=== PATIENT | female | born 1985 | race Caucasian/White ===

== ENCOUNTER → 2016-07-28 | Outpatient (REF) | payer BC ==
[2016-07-28 12:59] LABS: PROLACTIN 9.4 NG/ML
== END ==
LOC: M LABDRAWP 10:36
PROVIDERS: ATTEND Physician Assistant
DX: N91.0 Primary amenorrhea (principal)

== ENCOUNTER → 2016-09-28 | Outpatient (CLI) | payer OTHER, BC ==
--- NOTE | 2016-09-28 20:53 | REP ---
LUMBAR SPINE COMPLETE: 09/28/2016. Clinical history: Work injury to low back. No prior study. Five views are provided. The AP view shows no evidence of scoliosis. Pedicles, spinous and transverse processes are intact. There are 6 non-rib bearing vertebral bodies in the upper most of these would be labeled transitional for discussion purposes sacrum, SI joints, iliac wings and lower thoracic levels and ribs are intact. I see no spondylolysis or spondylolisthesis. There is slight disc space narrowing at L4-5 and L5-S1. I see no compression deformities at any level. Impression: 1. Normal lordosis but some mild disc space narrowing at L4-5 and L5-S1 without spondylolysis, spondylolisthesis or other acute finding. Signed by Nathan Chatman MD 09/29/2016 11:16 A
== END ==
LOC: M WUC 19:11
PROVIDERS: ATTEND Physician Assistant
DX: M54.5 Low back pain (principal)

== ENCOUNTER → 2017-06-25 | Outpatient (REF) | payer BC ==
[2017-06-25 12:27] LABS: CHOLESTEROL LEVEL 238 MG/DL (<200); CHOLESTEROL RISK RATIO 4.958 (<5); GLUCOSE, FASTING 97 MG/DL (70-100); HDL CHOLESTEROL 48 MG/DL (>40); LDL CHOLESTEROL 163.2 MG/DL (<100); NON-HDL-C 190 MG/DL; TRIGLYCERIDES LEVEL 134 MG/DL (<150)
== END ==
LOC: M SFHCPLAZ 08:26
DX: Z13.1 Encounter for screening for diabetes mellitus (principal); Z68.34 Body mass index [BMI] 34.0-34.9, adult; Z13.220 Encounter for screening for lipoid disorders
CPT/HCPCS: 82947

== ENCOUNTER → 2017-09-17 | Outpatient (REF) | payer BC ==
[2017-09-17 14:19] LABS: CHLAMYDIA DNA AMPLIFICATION NEGATIVE (NEGATIVE); GC DNA AMPLIFICATION NEGATIVE (NEGATIVE)
[2017-09-19 14:17] LABS: HPV HYBRID CAPTURE II Negative (Negative)
== END ==
LOC: M SFHCPLAZ 11:50
DX: Z11.4 Encounter for screening for human immunodeficiency virus [HIV] (principal); Z12.4 Encounter for screening for malignant neoplasm of cervix
CPT/HCPCS: 87591

== ENCOUNTER → 2017-09-24 | Outpatient (CLI) | payer BC | LOC: M WHC 14:26 | DX: R10.30 Lower abdominal pain, unspecified (principal); N88.8 Other specified noninflammatory disorders of cervix uteri; Z97.5 Presence of (intrauterine) contraceptive device | CPT/HCPCS: 76830 ==

== ENCOUNTER → 2017-11-07 | Outpatient (REF) | payer BC | LOC: M WUC 11:03 | DX: R30.0 Dysuria (principal) | CPT/HCPCS: 87186 ==

== ENCOUNTER → 2017-11-10 | Outpatient (REF) | payer BC ==
[2017-11-10 22:46] LABS: APPEARANCE, URINE CLOUDY (CLEAR); BACTERIA, URINE AUTO 3+ (NEGATIVE); BILIRUBIN, URINE AUTO NEGATIVE (NEGATIVE); BLOOD, URINE BLOOD 3+ (NEGATIVE); COLOR, URINE YELLOW (YELLOW); GLUCOSE, URINE (UA) AUTO NEGATIVE (NEGATIVE); KETONE, URINE AUTO NEGATIVE (NEGATIVE); LEUKOCYTE ESTERASE, URINE AUTO 3+ (NEGATIVE); MUCUS, URINE SMALL (NEGATIVE); NITRITE, URINE AUTO POSITIVE (NEGATIVE); PROTEIN, URINE AUTO 1+ mg/dL (NEGATIVE); RBC, URINE AUTO 88 /HPF (0-3); SPECIFIC GRAVITY URINE AUTO 1.019 (1.002-1.035); SQUAMOUS EPITHELIAL CELL UR AU 5 /HPF (0-6); UROBILINOGEN, URINE AUTO 0.2 mg/dL (0.0-2.0); WBC, URINE AUTO TNTC /HPF (0-3)
== END ==
LOC: M LAB REF 22:31
DX: N39.0 Urinary tract infection, site not specified (principal)
CPT/HCPCS: 81001